=== PATIENT | male | born 1975 | race Caucasian/White ===

== ENCOUNTER 2019-07-20 10:32 | Emergency (ER) | payer SELFPAY ==
[~2019-07-20] VITALS: Ht 170.2 cm; Wt 72.7 kg
[2019-07-20 10:44] VITALS: BP 147/95
[2019-07-20] MEDS ORDERED: DOXYCYCLINE HYCLATE 100 MG CAPSULE PO ONE (11:00)
== END 2019-07-20 11:18 | disposition home or self-care (01) ==
LOC: EMS 10:35
DX: L03.114 Cellulitis of left upper limb (principal)